=== PATIENT | female | born 1950 | race Caucasian/White ===

== ENCOUNTER 2018-02-17 08:48 | Outpatient (CLI) | payer BC, MEDICARE | END 2018-02-17 08:49 | disposition home or self-care (01) | LOC: BICMAMMO 08:48 | PROVIDERS: ATTEND Obstetrics & Gynecology | DX: Z12.31 Encounter for screening mammogram for malignant neoplasm of breast (principal); Z13.820 Encounter for screening for osteoporosis; M85.89 Other specified disorders of bone density and structure, multiple sites | CPT/HCPCS: 77063; 77067; 77080 ==

== ENCOUNTER 2019-02-19 10:41 | Outpatient (CLI) | payer MEDICARE, BC ==
--- NOTE | 2019-02-19 11:20 | MMO ---
Bilateral MAMMO Bilat Screen [facility]. CLINICAL HISTORY: Patient is 68 years old and is seen for screening. The patient has no family history of breast cancer. The patient has no personal history of cancer. VIEWS: The views performed were: bilateral craniocaudal with tomosynthesis and bilateral mediolateral oblique with tomosynthesis. FILMS COMPARED: The present examination has been compared to prior imaging studies performed at [facility] on 12/30/2014, 12/29/2015, 01/01/2017 and 02/17/2018. MAMMOGRAM FINDINGS: There are scattered fibroglandular densities. There are no suspicious masses, suspicious calcifications, or new areas of architectural distortion. IMPRESSION: THERE IS NO MAMMOGRAPHIC EVIDENCE OF MALIGNANCY. A ROUTINE FOLLOW-UP MAMMOGRAM IN 1 YEAR IS RECOMMENDED. THE RESULTS OF THIS EXAM WERE SENT TO THE PATIENT. ACR BI-RADS Category 1 - Negative MAMMOGRAPHY NOTE: 1. A negative mammogram report should not delay a biopsy if a dominant of clinically suspicious mass is present. 2. Approximately 10% to 15% of breast cancers are not detected by mammography. 3. Adenosis and dense breasts may obscure an underlying neoplasm. Reported by: YOLY TAVARES MD Electonically Signed: [id number]
== END 2019-02-19 10:42 | disposition home or self-care (01) ==
LOC: BICMAMMO 10:41
PROVIDERS: ATTEND Obstetrics & Gynecology
DX: Z12.31 Encounter for screening mammogram for malignant neoplasm of breast (principal)
CPT/HCPCS: 77063; 77067

== ENCOUNTER 2019-03-11 15:12 | Outpatient (CLI) | payer OTHER ==
[~2019-03-11 15:12] MED LIST: ISOVUE-370 76%-LOCM 1 ML ONE
--- NOTE | 2019-03-13 16:28 | CT ---
CT CORONARY ANGIOGRAM WITH IV CONTRAST AND 3D POSTPROCESSING: Date: 03/11/19 HISTORY: Family history of heart disease. Coronary artery screening. IV CONTRAST: 90 mL [id number] injected intravenously. FINDINGS: Total calcium score using AJ-130 method measures 69. LM: 0 RCA: 0 LAD: 61 CX: 8 Total: 69 There is calcified and noncalcified plaque in the LAD with an approximately 30% stenosis in the proxi mal and mid portions. Minimal stenosis is seen in the left circumflex artery. No stenosis is seen in the RCA. Quantitative left ventricular function measurements are as follows: Ejection fraction: 68% End-diastolic volume: 112 mL End-systolic volume: 36 mL Stroke volume: 76 mL/minute Cardiac output: 4.6 liters/minute Left ventricular wall motion is normal. No pericardial or pleural effusions are seen. There is no charles dence of aneurysmal dilatation of the thoracic aorta. The visualized lung borjas are unremarkable. IMPRESSION: 1. Coronary artery disease with a total calcium score of 69. 2. 30% of the proximal and mid portions of the LAD. POS: IVANIA
== END 2019-03-11 15:13 | disposition home or self-care (01) ==
LOC: BICCT 15:12
PROVIDERS: ATTEND Internal Medicine
DX: Z13.6 Encounter for screening for cardiovascular disorders (principal); I25.10 Atherosclerotic heart disease of native coronary artery without angina pectoris
CPT/HCPCS: 75574; 82565

== ENCOUNTER 2020-02-23 09:08 | Outpatient (CLI) | payer MEDICARE, BC ==
--- NOTE | 2020-02-23 09:31 | MMO ---
Bilateral MAMMO Bilat Screen [facility]. CLINICAL HISTORY: Patient is 69 years old and is seen for screening. The patient has no family history of breast cancer. The patient has no personal history of cancer. VIEWS: The views performed were: bilateral craniocaudal with tomosynthesis and bilateral mediolateral oblique with tomosynthesis. FILMS COMPARED: The present examination has been compared to prior imaging studies performed at [facility] on 12/29/2015, 01/01/2017, 02/17/2018 and 02/19/2019. This study has been interpreted with the assistance of computer-aided detection. MAMMOGRAM FINDINGS: There are scattered fibroglandular densities. There are no suspicious masses, suspicious calcifications, or new areas of architectural distortion. IMPRESSION: THERE IS NO MAMMOGRAPHIC EVIDENCE OF MALIGNANCY. A ROUTINE FOLLOW-UP MAMMOGRAM IN 1 YEAR IS RECOMMENDED. THE RESULTS OF THIS EXAM WERE SENT TO THE PATIENT. ACR BI-RADS Category 1 - Negative MAMMOGRAPHY NOTE: 1. A negative mammogram report should not delay a biopsy if a dominant of clinically suspicious mass is present. 2. Approximately 10% to 15% of breast cancers are not detected by mammography. 3. Adenosis and dense breasts may obscure an underlying neoplasm. Reported by: CHANEL PARKS MD Electonically Signed: [id number]
== END 2020-02-23 09:09 | disposition home or self-care (01) ==
LOC: BICMAMMO 09:08
PROVIDERS: ATTEND Internal Medicine
DX: Z12.31 Encounter for screening mammogram for malignant neoplasm of breast (principal)
CPT/HCPCS: 77063; 77067

== ENCOUNTER 2021-06-16 11:12 | Outpatient (CLI) | payer MEDICARE, BC | END 2021-06-16 11:13 | disposition home or self-care (01) | LOC: BICMAMMO 11:12 | PROVIDERS: ATTEND Internal Medicine | DX: Z12.31 Encounter for screening mammogram for malignant neoplasm of breast (principal) | CPT/HCPCS: 77063; 77067 ==

== ENCOUNTER 2021-07-20 18:07 | Emergency (ER) | payer MEDICARE, BC, OTHER ==
[2021-07-20] MEDS ORDERED: HYDROcodone/Acetaminophen 5/325 mg Tablet ONE (18:39)
== END 2021-07-20 19:58 | disposition home or self-care (01) ==
LOC: ERS 18:07
DX: S09.90XA Unspecified injury of head, initial encounter (principal); S43.402A Unspecified sprain of left shoulder joint, initial encounter; W01.0XXA Fall on same level from slipping, tripping and stumbling without subsequent striking against object, initial encounter
CPT/HCPCS: 70450; 72125

== ENCOUNTER 2022-11-01 10:00 | Outpatient (CLI) | payer MEDICARE, BC | END 2022-11-01 10:01 | disposition home or self-care (01) | LOC: BICMAMMO 10:00 | PROVIDERS: ATTEND Internal Medicine | DX: Z12.31 Encounter for screening mammogram for malignant neoplasm of breast (principal) | CPT/HCPCS: 77063; 77067 ==

== ENCOUNTER 2023-07-16 13:47 | Outpatient (CLI) | payer MEDICARE, BC | END 2023-07-16 13:48 | disposition home or self-care (01) | LOC: SCSMRI 13:47 | PROVIDERS: ATTEND Internal Medicine | DX: R41.81 Age-related cognitive decline (principal); I67.82 Cerebral ischemia | CPT/HCPCS: 70551 ==

== ENCOUNTER 2025-06-23 15:02 | Outpatient (CLI) | payer MEDICARE | END 2025-06-23 15:03 | disposition home or self-care (01) | LOC: BICMAMMO 15:02 | PROVIDERS: ATTEND Internal Medicine | DX: Z12.31 Encounter for screening mammogram for malignant neoplasm of breast (principal); M81.0 Age-related osteoporosis without current pathological fracture; M85.851 Other specified disorders of bone density and structure, right thigh; M85.852 Other specified disorders of bone density and structure, left thigh; Z80.3 Family history of malignant neoplasm of breast | CPT/HCPCS: 77063; 77067; 77080 ==